=== PATIENT | male | born 1975 | race African-American/Black ===

== ENCOUNTER 2019-05-05 16:58 | Emergency (ER) | payer BC ==
--- NOTE | 2019-05-05 19:56 | RAD ---
EXAM: XR Abdomen 2 View PROVIDED CLINICAL HISTORY: Foreign body. Short of glass in stool. Patient having blood in stool. COMPARISON: None FINDINGS: Visualized lung bases are clear. The bowel gas pattern is nonspecific. No radiopaque foreign body is visualized on this examination. However, the reported foreign bodies glass which may be difficult to visualize on radiographic evaluation. No free intraperitoneal gas is seen beneath the hemidiaphrag ms. No suspicious calcifications are seen. The osseous structures have a normal appearance. IMPRESSION: Nonspecific bowel gas pattern. No obvious radiopaque foreign body is seen on this exam.
== END 2019-05-05 20:22 | disposition home or self-care (01) ==
LOC: ERS 16:58
DX: K62.5 Hemorrhage of anus and rectum (principal); I10 Essential (primary) hypertension; Z79.899 Other long term (current) drug therapy
CPT/HCPCS: 74019

== ENCOUNTER 2019-05-06 01:23 | Emergency (ER) | payer BC | END 2019-05-06 02:57 | disposition home or self-care (01) | LOC: ERS 01:23 | DX: K62.5 Hemorrhage of anus and rectum (principal); I10 Essential (primary) hypertension; Z79.899 Other long term (current) drug therapy | CPT/HCPCS: 99283 ==

== ENCOUNTER 2019-11-09 01:00 | Emergency (ER) | payer BC | END 2019-11-09 02:09 | disposition home or self-care (01) | LOC: ERS 01:00 | DX: S61.551A Open bite of right wrist, initial encounter (principal); S41.151A Open bite of right upper arm, initial encounter; I10 Essential (primary) hypertension; Z79.899 Other long term (current) drug therapy; W54.0XXA Bitten by dog, initial encounter; Y93.F9 Activity, other caregiving; Y92.009 Unspecified place in unspecified non-institutional (private) residence as the place of occurrence of the external cause | CPT/HCPCS: 99283 ==

== ENCOUNTER 2019-12-13 21:34 | Emergency (ER) | payer BC, OTHER | END 2019-12-13 22:08 | disposition home or self-care (01) | LOC: ERS 21:34 | DX: M23.91 Unspecified internal derangement of right knee (principal); I10 Essential (primary) hypertension; W17.89XA Other fall from one level to another, initial encounter; Y99.0 Civilian activity done for income or pay | CPT/HCPCS: 99283 ==

== ENCOUNTER 2020-01-02 10:30 | Outpatient (CLI) | payer OTHER ==
--- NOTE | 2020-01-02 11:11 | RAD ---
Radiograph left great toe 3 views: 01/02/2020 HISTORY: 44-year-old male with persistent posttraumatic pain in first toe after blunt trauma 2 weeks ago FINDINGS: There is mild joint space narrowing, and moderate osteophytosis, but without erosions and without marlene lux valgus, involving the first MTP. No fracture lucency. No dislocation. No periostitis. IMPRESSION: 1. No fracture. 2. Moderate osteoarthrosis of the first metatarsophalangeal joint.
== END 2020-01-02 10:31 | disposition home or self-care (01) ==
LOC: BICRAD 10:30
PROVIDERS: ATTEND Family Medicine
DX: S99.922D Unspecified injury of left foot, subsequent encounter (principal); M19.072 Primary osteoarthritis, left ankle and foot

== ENCOUNTER 2020-01-29 15:02 | Outpatient (CLI) | payer OTHER ==
--- NOTE | 2020-01-29 16:15 | MRI ---
MRI OF THE RIGHT KNEE WITHOUT CONTRAST: 01/29/20 INDICATION: History of right knee pain after tripping and falling and hitting the distal portion of the right kne e below the patella on a metal step. COMPARISON: Right knee radiograph dated 12/09/[address] evaluation dated 12/31/19. FINDINGS: There is poor visualization of an intact ACL graft. A few fibers are present along the proximal and distal segments with limited visualization of fibers in its mid segment suspicious for near complete, if not complete, tear. The PCL is intact. The MCL and LCLC appear intact. There is moderate to severe diffuse osteoarthrosis involving the right knee with full thickness artic ular cartilage thinning involving the lateral patellar facet and median patellar ridge with moderate diffuse thinning involving the lateral femorotibial compartment and mild diffuse thinning involving t he medial femorotibial compartment. There is some intrasubstance degenerative type signal involving the medial meniscus along its body an d posterior horn. No discrete meniscal tear is evident of the medial or lateral meniscus. Susceptibility artifact from an interference screw within the distal femur and a tibial post within t he proximal tibia slightly limits image detail. The extensor mechanism appears intact. IMPRESSION: 1. Findings highly suspicious for disruption of the ACL graft. There are very limited intact fib ers seen traversing the joint space. Recommend correlation for ACL insufficiency. 2. The PCL, MCL, LCLC and extensor mechanism appear intact. 3. Moderate to severe osteoarthrosis of the right knee, affecting the patellofemoral and lateral femorotibial joint compartments. POS: [facility]
== END 2020-01-29 15:03 | disposition home or self-care (01) ==
LOC: BICMRI 15:02
PROVIDERS: ATTEND Orthopaedic Surgery
DX: S83.91XA Sprain of unspecified site of right knee, initial encounter (principal); M17.11 Unilateral primary osteoarthritis, right knee

== ENCOUNTER 2020-04-22 15:27 | Emergency (ER) | payer BC ==
[2020-04-22] MEDS ORDERED: Cyclobenzaprine 10 MG TAB ONE ×2 (17:37→17:38)
[2020-04-22] MEDS ORDERED: Ketorolac Tromethamine 30 MG/ML VIAL ONE ×2 (17:37→17:41)
== END 2020-04-22 17:49 | disposition home or self-care (01) ==
LOC: ERS 15:27
DX: S39.012A Strain of muscle, fascia and tendon of lower back, initial encounter (principal); X58.XXXA Exposure to other specified factors, initial encounter
CPT/HCPCS: 96372; 99283; J1885

== ENCOUNTER 2020-05-03 19:22 | Emergency (ER) | payer BC ==
[2020-05-03] MEDS ORDERED: Ketorolac Tromethamine 30 MG/ML VIAL ONE (22:04)
--- NOTE | 2020-05-03 22:18 | RAD ---
EXAM: 3 views of the lumbosacral spine HISTORY: Low back pain COMPARISON: MRI lumbar spine 11/07/2005 and lumbar spine radiograph 02/08/2005 FINDINGS: 3 views of the lumbosacral spine shows normal height and alignment of the vertebral bodies without fracture or subluxation. Moderate degenerative changes are seen at L5/S1 with intervertebral disc space narrowing and osteophyte formation. Minimal osteophyte formation is also se en at L4/5. The sacroiliac joints are unremarkable. IMPRESSION: Degenerative changes of the lower lumbosacral spine as above.
== END 2020-05-03 22:48 | disposition home or self-care (01) ==
LOC: ERS 19:22
DX: S39.012A Strain of muscle, fascia and tendon of lower back, initial encounter (principal); X50.9XXA Other and unspecified overexertion or strenuous movements or postures, initial encounter; I10 Essential (primary) hypertension
CPT/HCPCS: 72100; 96372; J1885

== ENCOUNTER 2020-06-02 02:28 | Emergency (ER) | payer BC ==
[2020-06-02] MEDS ORDERED: Ketorolac Tromethamine 30 MG/ML VIAL ONE (03:13)
== END 2020-06-02 03:31 | disposition home or self-care (01) ==
LOC: ERS 02:28
DX: K03.81 Cracked tooth (principal); I10 Essential (primary) hypertension
CPT/HCPCS: 96374; J1885

== ENCOUNTER 2022-10-30 09:26 | Outpatient (CLI) | payer MEDICARE | END 2022-10-30 09:27 | disposition home or self-care (01) | LOC: BICMRI 09:26 | PROVIDERS: ATTEND Orthopaedic Surgery | DX: M47.22 Other spondylosis with radiculopathy, cervical region (principal); M48.02 Spinal stenosis, cervical region; M54.2 Cervicalgia | CPT/HCPCS: 72141 ==

== ENCOUNTER 2022-11-09 18:00 | Outpatient (CLI) | payer MEDICARE | END 2022-11-09 18:01 | disposition home or self-care (01) | LOC: SLEEPLAB 18:00 | PROVIDERS: ATTEND Family Medicine | DX: G47.33 Obstructive sleep apnea (adult) (pediatric) (principal); G47.10 Hypersomnia, unspecified; R53.83 Other fatigue; G47.61 Periodic limb movement disorder; R40.0 Somnolence; E66.9 Obesity, unspecified; I10 Essential (primary) hypertension; R06.83 Snoring | CPT/HCPCS: 95800 ==

== ENCOUNTER 2022-12-10 19:30 | Outpatient (CLI) | payer MEDICARE | END 2022-12-10 19:31 | disposition home or self-care (01) | LOC: SLEEPLAB 19:30 | PROVIDERS: ATTEND Family Medicine | DX: G47.33 Obstructive sleep apnea (adult) (pediatric) (principal); G47.10 Hypersomnia, unspecified; R53.83 Other fatigue; G47.61 Periodic limb movement disorder; E66.9 Obesity, unspecified; R06.83 Snoring; I10 Essential (primary) hypertension; Z68.41 Body mass index [BMI] 40.0-44.9, adult | CPT/HCPCS: 95811 ==

== ENCOUNTER 2023-06-15 07:19 | Emergency (ER) | payer MEDICARE, OTHER ==
[2023-06-15 07:52] LABS: #Eosinphils 0.3 thou/uL (0.0-0.7); #Monocytes 0.4 thou/uL (0.11-0.59); #Neutrophils 1.4 thou/uL (1.40-6.50); %Monocytes 10.1 % (0.0-10.0); %Neutrophils 34.7 % (42.0-75.0); Hematocrit 40.8 % (42.0-52.0); Hemoglobin 13.4 g/dL (14.0-18.0); Mean Corpuscular HGB CONC 32.8 g/dL (32.0-36.0); Mean Corpuscular Hemoglobin 26.5 pg (27.0-31.0); Mean Corpuscular Volume 80.8 fl (78.0-98.0); Mean Platelet Volume 9.8 fL (7.4-10.4); Platelet Count 258 10x3/uL (130-400); RBC Distribution Width 14.3 % (11.5-14.5); Red Blood Cell (RBC) Count 5.05 mill/uL (4.70-6.10); White Blood Cell (WBC) Count 4.2 10x3/uL (4.8-10.8)
[2023-06-15 08:10] LABS: ALT (SGPT) 27 U/L (8-55); AST (SGOT) 20 U/L (5-34); Albumin 3.7 g/dL (3.5-5.0); Alkaline Phosphatase 63 U/L (40-110); Anion Gap 13 mmol/L (10-20); BUN (Urea Nitrogen) 14 mg/dL (8.9-20.6); Bilirubin, Total 0.5 mg/dL (0.2-1.2); Calc. Creatinine Clearance 0 mL/min (70-130); Calcium 8.9 mg/dL (7.8-10.44); Carbon Dioxide 26 mmol/L (22-29); Chloride 106 mmol/L (98-107); Estimated GFR 79; Globulin 3.1 g/dL (2.4-3.5); Glucose 93 mg/dL (70-105); Potassium 3.6 mmol/L (3.5-5.1); Protein, Total 6.8 g/dL (6.0-8.3); Sodium 141 mmol/L (136-145)
[2023-06-15 08:14] LABS: Troponin I Less than 0.010 ng/mL (< 0.028)
[2023-06-15] MEDS ORDERED: Acetaminophen 500 MG TAB ONE (08:23)
[2023-06-15 10:34] LABS: Troponin I Less than 0.010 ng/mL (< 0.028)
== END 2023-06-15 11:07 | disposition home or self-care (01) ==
LOC: ERS 07:19
DX: R07.89 Other chest pain (principal); R00.1 Bradycardia, unspecified; D72.819 Decreased white blood cell count, unspecified; I10 Essential (primary) hypertension; Z55.6 Problems related to health literacy; Z79.899 Other long term (current) drug therapy
CPT/HCPCS: 36415; 71045; 80053; 84484; 85025; 93005

== ENCOUNTER 2024-03-03 18:45 | Inpatient (IN) | payer OTHER ==
[2024-03-03 19:56] LABS: Hematocrit 42.6 % (42.0-52.0); Hemoglobin 14.6 g/dL (14.0-18.0); Mean Corpuscular HGB CONC 34.3 g/dL (32.0-36.0); Mean Corpuscular Hemoglobin 28.5 pg (27.0-31.0); Mean Corpuscular Volume 83.2 fL (78.0-98.0); Mean Platelet Volume 9.6 fL (7.4-10.4); Platelet Count 311 10x3/uL (130-400); Red Blood Cell (RBC) Count 5.12 mill/uL (4.70-6.10)
[2024-03-03] MEDS ORDERED: Ampicillin/Sulbactam 3 GM VIAL ONE (19:57)
[2024-03-03] MEDS ORDERED: Rabies Vaccine Human 2.5 UNITS VIAL ONE (19:57)
[2024-03-03] MEDS ORDERED: Rabies Immune Globulin/PF 300 UNITS/ML VIAL ONE (19:57)
[2024-03-03] MEDS ORDERED: Sodium Chloride 0.9% 100 ML ONE (19:59)
[2024-03-03 20:08] LABS: ALT (SGPT) 36 U/L (8-55); AST (SGOT) 21 U/L (5-34); Albumin 3.3 g/dL (3.5-5.0); Alkaline Phosphatase 65 U/L (40-110); Anion Gap 11 mmol/L (10-20); BUN (Urea Nitrogen) 12 mg/dL (8.9-20.6); Bilirubin, Total 0.9 mg/dL (0.2-1.2); Calc. Creatinine Clearance 0 mL/min (70-130); Calcium 8.7 mg/dL (7.8-10.44); Carbon Dioxide 24 mmol/L (22-29); Chloride 106 mmol/L (98-107); Estimated GFR 75; Globulin 3.4 g/dL (2.4-3.5); Glucose 110 mg/dL (70-105); Potassium 3.2 mmol/L (3.5-5.1); Protein, Total 6.7 g/dL (6.0-8.3); Sodium 138 mmol/L (136-145)
[2024-03-03 20:15] LABS: Eosinophils 3 % (0-10); Lymphocytes 25 % (21-51); Monocytes 5 % (0-10); Neutrophil 64 % (42-75); Plasma Cells 1 % (0-0); Platelet Adequacy Comment Platelets Normal; Reactive Lymphocytes 2 % (0-10)
[2024-03-03] MEDS ORDERED: TETANUS, DIPHTHERIA TOX,ADULT (TDVAX) 0.5 ML VIAL IM ONE (21:13)
[2024-03-03] MEDS ORDERED: Acetaminophen 325 MG TAB PO PRN (21:13)
[2024-03-03] MEDS ORDERED: Ondansetron ODT 4 MG TAB PO PRN (21:13)
[2024-03-03] MEDS ORDERED: Ondansetron PF 4 MG/2 ML Vial IVP PRN (21:13)
[2024-03-03] MEDS ORDERED: Acetaminophen 650 MG Suppository PR PRN (21:13)
[2024-03-03] MEDS ORDERED: traMADol HCl 50 MG TAB PO PRN ×2 (21:13)
[2024-03-03 22:56] VITALS: BMI 40.0
[2024-03-03] MEDS: TETANUS AND DIPHTHERIA TOX/PF 0.5 ML DISP.SYRIN IM SCH (23:28)
[2024-03-04] MEDS: Ampicillin/Sulbactam 3 GM in Sodium Chloride 0.9% 100 ML IVPB SCH (02:17)
[2024-03-04 06:30] LABS: Hematocrit 39.9 % (42.0-52.0); Hemoglobin 13.2 g/dL (14.0-18.0); Mean Corpuscular HGB CONC 33.1 g/dL (32.0-36.0); Mean Corpuscular Hemoglobin 28.3 pg (27.0-31.0); Mean Corpuscular Volume 85.4 fL (78.0-98.0); Mean Platelet Volume 9.7 fL (7.4-10.4); Platelet Count 248 10x3/uL (130-400); RBC Distribution Width 13.1 % (11.5-14.5); Red Blood Cell (RBC) Count 4.67 mill/uL (4.70-6.10)
[2024-03-04 06:54] LABS: Anion Gap 11 mmol/L (10-20); BUN (Urea Nitrogen) 12 mg/dL (8.9-20.6); Calc. Creatinine Clearance 121 mL/min (70-130); Calcium 7.9 mg/dL (7.8-10.44); Carbon Dioxide 23 mmol/L (22-29); Chloride 111 mmol/L (98-107); Estimated GFR 88; Glucose 86 mg/dL (70-105); Potassium 3.3 mmol/L (3.5-5.1); Sodium 142 mmol/L (136-145)
[2024-03-04 07:46] LABS: Eosinophils 2 % (0-10); Lymphocytes 32 % (21-51); Monocytes 6 % (0-10); Neutrophil 57 % (42-75); Platelet Adequacy Comment Platelets Normal; RBC Morphology Within Normal Limits; Reactive Lymphocytes 1 % (0-10)
[2024-03-04] MEDS: Enoxaparin 40 MG (0.4 mL) SYRINGE SC SCH (09:36)
[2024-03-04] MEDS: Famotidine 20 MG TAB PO SCH (09:36)
[2024-03-04] MEDS ORDERED: Magnevist 469MG/ML 20 ML VIAL ONE (10:47)
[2024-03-04] MEDS: Ketorolac Tromethamine 30 MG (1 mL) VIAL IVP PRN (13:38)
[2024-03-04] MEDS: Ampicillin/Sulbactam 3 GM VIAL ONE (13:39)
[2024-03-05 06:14] LABS: Hematocrit 38.4 % (42.0-52.0); Hemoglobin 12.9 g/dL (14.0-18.0); Mean Corpuscular HGB CONC 33.6 g/dL (32.0-36.0); Mean Corpuscular Hemoglobin 27.7 pg (27.0-31.0); Mean Corpuscular Volume 82.4 fL (78.0-98.0); Mean Platelet Volume 10.3 fL (7.4-10.4); Platelet Count 240 10x3/uL (130-400); RBC Distribution Width 12.9 % (11.5-14.5); Red Blood Cell (RBC) Count 4.66 mill/uL (4.70-6.10)
[2024-03-05 06:16] LABS: Anion Gap 11 mmol/L (10-20); BUN (Urea Nitrogen) 11 mg/dL (8.9-20.6); Calc. Creatinine Clearance 116 mL/min (70-130); Calcium 8.1 mg/dL (7.8-10.44); Carbon Dioxide 24 mmol/L (22-29); Chloride 109 mmol/L (98-107); Estimated GFR 84; Glucose 97 mg/dL (70-105); Potassium 3.2 mmol/L (3.5-5.1); Sodium 141 mmol/L (136-145)
[2024-03-05 06:52] LABS: Burr Cells SLIGHT = 2-5 cells HPF (0-1); Eosinophils 5 % (0-10); Lymphocytes 30 % (21-51); Monocytes 8 % (0-10); Neutrophil 55 % (42-75); Platelet Adequacy Comment Platelets Normal; Reactive Lymphocytes 2 % (0-10)
[2024-03-05] MEDS: Citalopram 20 MG TAB PO SCH (09:26)
[2024-03-05] MEDS: Potassium Chloride 20 MEQ in Premix 1 BAG IVPB SCH (09:26)
[2024-03-05] MEDS ORDERED: Lidocaine 1% PF 5 ML VIAL ONE (12:38)
[2024-03-05] MEDS ORDERED: Ondansetron PF 4 MG/2 ML Vial ONE (12:38)
[2024-03-05] MEDS ORDERED: Dexamethasone 20 MG/5 ML VIAL ONE (12:38)
[2024-03-05] MEDS ORDERED: fentaNYL PF 100 MCG/2 ML SYRINGE ONE (12:38)
[2024-03-05] MEDS ORDERED: PROPOFOL 20 ML ONE (12:39)
[2024-03-05] MEDS ORDERED: Midazolam HCl 2 mg/2 ml Vial ONE (12:39)
[2024-03-05] MEDS ORDERED: Bacitracin Zinc Ointment 30 gm TUBE ONE (12:42)
[2024-03-05] MEDS ORDERED: Bupivacaine PF 0.5% 30 ML VIAL ONE (12:42)
[2024-03-05] MEDS ORDERED: Scopolamine 1 mg/72 hour Patch ONE (13:22)
[2024-03-05] MEDS ORDERED: fentaNYL 50 mcg/mL 1 mL Vial ONE ×4 (14:16→15:40)
[2024-03-05] MEDS ORDERED: Ketorolac Tromethamine 30 MG (1 mL) VIAL ONE (15:10)
[2024-03-05] MEDS ORDERED: HYDROmorphone 0.5 MG/0.5 ML SYRINGE ONE (15:17)
[2024-03-05] MEDS: Potassium Chloride 20 MEQ TAB PO SCH (16:49)
[2024-03-05] MEDS: Losartan 25 MG TAB PO SCH (16:49)
[2024-03-05] MEDS: Ketorolac Tromethamine 30 MG (1 mL) VIAL IM SCH (16:49)
[2024-03-05] MEDS ORDERED: Promethazine HCl 25 MG/ML VIAL IM PRN (18:07)
[2024-03-05] MEDS: Ketorolac Tromethamine 30 MG (1 mL) VIAL IVP SCH (23:45)
[2024-03-06 05:55] LABS: #Basophils Less than 0.03 10x3/uL (0.0-0.2); #Eosinophils Less than 0.03 10x3/uL (0.0-0.7); %Basophils 0.1 % (0.0-1.0); %Lymphocytes 9.1 % (21.0-51.0); %Monocytes 7.2 % (0.0-10.0); Hematocrit 39.3 % (42.0-52.0); Hemoglobin 13.4 g/dL (14.0-18.0); Mean Corpuscular HGB CONC 34.1 g/dL (32.0-36.0); Mean Corpuscular Hemoglobin 28.1 pg (27.0-31.0); Mean Corpuscular Volume 82.4 fL (78.0-98.0); Mean Platelet Volume 9.9 fL (7.4-10.4); Platelet Count 275 10x3/uL (130-400); RBC Distribution Width 12.8 % (11.5-14.5); Red Blood Cell (RBC) Count 4.77 mill/uL (4.70-6.10)
[2024-03-06 06:08] LABS: Anion Gap 11 mmol/L (10-20); BUN (Urea Nitrogen) 12 mg/dL (8.9-20.6); Calc. Creatinine Clearance 129 mL/min (70-130); Calcium 8.2 mg/dL (7.8-10.44); Carbon Dioxide 21 mmol/L (22-29); Chloride 111 mmol/L (98-107); Estimated GFR 96; Glucose 128 mg/dL (70-105); Potassium 4.2 mmol/L (3.5-5.1); Sodium 139 mmol/L (136-145)
[2024-03-06] MEDS: Losartan 25 MG TAB PO SCH (07:38)
[2024-03-06] MEDS: Meperidine HCl/PF 25 MG (1 mL) VIAL IM PRN (08:29)
[2024-03-06] MEDS: Rabies Vaccine Human 2.5 UNITS VIAL IM ONE (10:18)
[2024-03-07 06:48] LABS: #Basophils 0.05 10x3/uL (0.0-0.2); %Basophils 0.6 % (0.0-1.0); %Lymphocytes 27.1 % (21.0-51.0); %Monocytes 7.6 % (0.0-10.0); %Neutrophils 61.4 % (42.0-75.0); Mean Corpuscular HGB CONC 33.3 g/dL (32.0-36.0); Mean Corpuscular Hemoglobin 28.5 pg (27.0-31.0); Mean Corpuscular Volume 85.5 fL (78.0-98.0); Mean Platelet Volume 9.7 fL (7.4-10.4); Platelet Count 245 10x3/uL (130-400); RBC Distribution Width 13.4 % (11.5-14.5); Red Blood Cell (RBC) Count 4.21 mill/uL (4.70-6.10)
[2024-03-07 07:03] LABS: Anion Gap 10 mmol/L (10-20); BUN (Urea Nitrogen) 14 mg/dL (8.9-20.6); Calc. Creatinine Clearance 117 mL/min (70-130); Calcium 7.9 mg/dL (7.8-10.44); Carbon Dioxide 24 mmol/L (22-29); Chloride 111 mmol/L (98-107); Estimated GFR 85; Glucose 109 mg/dL (70-105); Potassium 3.8 mmol/L (3.5-5.1); Sodium 141 mmol/L (136-145)
[2024-03-07] MEDS: Gabapentin 100 MG CAP PO PRN (20:39)
[2024-03-08 07:12] LABS: #Basophils 0.05 10x3/uL (0.0-0.2); %Basophils 0.9 % (0.0-1.0); %Eosinophils 7.2 % (0.0-10.0); %Lymphocytes 41.9 % (21.0-51.0); %Monocytes 11.6 % (0.0-10.0); %Neutrophils 37.5 % (42.0-75.0); Hematocrit 40.9 % (42.0-52.0); Hemoglobin 13.8 g/dL (14.0-18.0); Mean Corpuscular HGB CONC 33.7 g/dL (32.0-36.0); Mean Corpuscular Hemoglobin 27.9 pg (27.0-31.0); Mean Corpuscular Volume 82.6 fL (78.0-98.0); Mean Platelet Volume 9.8 fL (7.4-10.4); Platelet Count 272 10x3/uL (130-400); RBC Distribution Width 13.1 % (11.5-14.5); Red Blood Cell (RBC) Count 4.95 mill/uL (4.70-6.10)
[2024-03-08 07:36] LABS: Anion Gap 11 mmol/L (10-20); BUN (Urea Nitrogen) 11 mg/dL (8.9-20.6); Calc. Creatinine Clearance 122 mL/min (70-130); Calcium 8.3 mg/dL (7.8-10.44); Carbon Dioxide 23 mmol/L (22-29); Chloride 107 mmol/L (98-107); Estimated GFR 89; Glucose 77 mg/dL (70-105); Potassium 3.7 mmol/L (3.5-5.1); Sodium 137 mmol/L (136-145)
[2024-03-09] MEDS ORDERED: Bacitracin Zinc Ointment 30 gm TUBE ONE (07:16)
[2024-03-09] MEDS ORDERED: Bupivacaine PF 0.5% 30 ML VIAL ONE (07:16)
[2024-03-09] MEDS ORDERED: Ondansetron HCl/PF 4 MG/2 ML Vial IVP PRN (07:54)
[2024-03-09] MEDS ORDERED: Promethazine HCl 25 MG/ML VIAL IM PRN (07:54)
[2024-03-09] MEDS ORDERED: fentaNYL PF 100 MCG/2 ML SYRINGE ONE (08:09)
[2024-03-09] MEDS ORDERED: Lidocaine 2% 6 ML (Jelly) SYR ONE (08:10)
[2024-03-09] MEDS ORDERED: PROPOFOL 20 ML ONE (08:10)
[2024-03-09] MEDS ORDERED: Lidocaine 1% PF 5 ML VIAL ONE (08:10)
[2024-03-09] MEDS ORDERED: ePHEDrine Sulfate 50 MG/10 ML VIAL ONE (08:25)
[2024-03-09] MEDS ORDERED: Ondansetron PF 4 MG/2 ML Vial ONE (08:29)
[2024-03-09] MEDS ORDERED: Dexamethasone 4 mg/ml Vial ONE (08:29)
[2024-03-09 13:16] VITALS: BP 153/94; TEMP 98
== END 2024-03-09 13:01 | disposition home or self-care (01) | DRG 571 ==
LOC: ERS 18:45 → SUATTDRO 18:45 → T4-B 21:13
PROVIDERS: ADMIT Family Medicine; ATTEND Internal Medicine
PROC: 0LB50ZZ Excision of Right Lower Arm and Wrist Tendon, Open Approach (ICD-10-PCS; 2024-03-05)
PROC: 0JBG0ZZ Excision of Right Lower Arm Subcutaneous Tissue and Fascia, Open Approach (ICD-10-PCS; principal; 2024-03-09)
DX: L03.113 Cellulitis of right upper limb (principal); Z68.41 Body mass index [BMI] 40.0-44.9, adult; L02.413 Cutaneous abscess of right upper limb; M65.921 Unspecified synovitis and tenosynovitis, right upper arm; E87.6 Hypokalemia; F41.9 Anxiety disorder, unspecified; F32.A Depression, unspecified; I10 Essential (primary) hypertension; Z98.890 Other specified postprocedural states; Z88.8 Allergy status to other drugs, medicaments and biological substances; E66.9 Obesity, unspecified
CPT/HCPCS: 36415; 80048; 80053; 83605; 85025; 87040; 87070; 87077; 87205; 90375; 90471; 90675; 90714; 96372; 96374; 97139; J0295; J0665; J1100; J1170; J1650; J1885; J2175; J2250; J2405; J2704; J3010; J3480

== ENCOUNTER → 2024-03-10 | Emergency (ER) | payer OTHER ==
[~2024-03-10] MED LIST: Rabies Vaccine Human 2.5 UNITS VIAL ONE
== END ==
LOC: ERS 10:49
DX: Z29.14 Encounter for prophylactic rabies immune globulin (principal); I10 Essential (primary) hypertension
CPT/HCPCS: 90675

== ENCOUNTER → 2024-03-17 | Day surgery (SDC) | payer OTHER ==
[~2024-03-17] MED LIST changes: +Rabies Immune Globulin/PF 300 UNITS/ML VIAL ONE
== END ==
LOC: ERS 21:07
PROVIDERS: ATTEND Radiology Vascular & Interventional Radiology
DX: Z29.14 Encounter for prophylactic rabies immune globulin (principal)
CPT/HCPCS: 90375; 90675

== ENCOUNTER 2024-12-17 10:42 | Day surgery (SDC) | payer OTHER ==
[2024-12-16 11:08] VITALS: BMI 43.4
[2024-12-17] MEDS ORDERED: PROPOFOL 20 ML ONE ×2 (12:58→13:33)
[2024-12-17] MEDS ORDERED: PROPOFOL 200 MG/20 ML VIAL ONE (13:15)
[2024-12-17] MEDS ORDERED: Lidocaine 1% PF 5 ML VIAL ONE (13:15)
== END 2024-12-17 14:31 | disposition home or self-care (01) ==
LOC: SDC 10:42
PROVIDERS: ATTEND Internal Medicine Gastroenterology
DX: K63.5 Polyp of colon (principal); K21.9 Gastro-esophageal reflux disease without esophagitis; I10 Essential (primary) hypertension; Z80.0 Family history of malignant neoplasm of digestive organs; Z88.5 Allergy status to narcotic agent; Z88.8 Allergy status to other drugs, medicaments and biological substances; Z88.1 Allergy status to other antibiotic agents; Z79.899 Other long term (current) drug therapy
CPT/HCPCS: 43235; 45385; J2704; 88305

== ENCOUNTER 2025-04-18 21:09 | Emergency (ER) | payer OTHER ==
[2025-04-18 22:31] LABS: #Basophils Less than 0.03 10x3/uL (0.0-0.2); #Eosinophils 0.13 10x3/uL (0.0-0.7); #Monocytes 0.22 10x3/uL (0.11-0.59); #Neutrophils 4.14 10x3/uL (1.40-6.50); %Basophils 0.4 % (0.0-1.0); %Eosinophils 2.5 % (0.0-10.0); %Lymphocytes 11.7 % (21.0-51.0); %Monocytes 4.3 % (0.0-10.0); %Neutrophils 80.7 % (42.0-75.0); Hematocrit 44.7 % (42.0-52.0); Hemoglobin 15.1 g/dL (14.0-18.0); Mean Corpuscular Hemoglobin 27.1 pg (27.0-31.0); Mean Corpuscular Volume 80.1 fL (78.0-98.0); Platelet Count 261 10x3/uL (130-400); Red Blood Cell (RBC) Count 5.58 mill/uL (4.70-6.10); White Blood Cell (WBC) Count 5.13 10x3/uL (4.8-10.8)
[2025-04-18 22:49] LABS: ALT (SGPT) 33 U/L (Less than 45); AST (SGOT) 30 U/L (11-34); Albumin 3.8 g/dL (3.1-4.5); Alkaline Phosphatase 61 U/L (40-110); Anion Gap 13 mmol/L (10-20); BUN (Urea Nitrogen) 11 mg/dL (8.9-20.6); Bilirubin, Total 1.2 mg/dL (0.3-1.2); Calc. Creatinine Clearance 0 mL/min (70-130); Calcium 9.1 mg/dL (7.8-10.44); Carbon Dioxide 23 mmol/L (22-29); Chloride 105 mmol/L (98-107); Globulin 3.2 g/dL (2.4-3.5); Glucose 105 mg/dL (70-105); Potassium 3.7 mmol/L (3.5-5.1); Sodium 137 mmol/L (136-145)
== END 2025-04-18 23:26 | disposition home or self-care (01) ==
LOC: ERS 21:09
DX: R07.89 Other chest pain (principal); I10 Essential (primary) hypertension; Z55.6 Problems related to health literacy
CPT/HCPCS: 71045; 80053; 83880; 84484; 85025; 93005